=== PATIENT | female | born 1965 | race Caucasian/White ===

== ENCOUNTER 2017-01-08 17:19 | Emergency (ER) | payer OTHER ==
[~2017-01-08] VITALS: Ht 167.6 cm; Wt 72.6 kg
--- NOTE | ~2017-01-08 | CR211 ---
[facility] A Service of [facility] & [facility] RADIOLOGY TEXT RESULTS PATIENT: RODRÍGUEZ LOPEZ LOCATION: CFT[facility] : 69 UNIT #: [id number] AGE: [address]: WAYNE LINN APRN SEX: F ORDER DR: [id number] [facility] [address] [place], [place] [address] [id number] E MR#: [id number] Acc #: [id number] NAME: RODRÍGUEZ LOPEZ : 1965 SEX: F STUDY DATE/TIME: 01/08/2017 18:34 UNIT: CFTX ROOM: STUDY DESCRIPTION: CR Ribs Uni 2 View W PA Ch Rt Attending Physician: Wayne Linn Aprn Ordering Physician: Beverley Xie P.A.-C. Primary Care Physician: Primary Care Physician No MEDICAL IMAGING REPORT This report is preliminary unless electronic signature is present EXAM Right ribs 4 views HISTORY Right rib pain after injury 3 days ago. FINDINGS 4 views of the right ribs are negative. No fracture, pneumothorax or pleural effusion. No focal infiltrates. IMPRESSION Negative right ribs Dictated by... Chase Buckner M.D. THIS IS AN ELECTRONICALLY VERIFIED REPORT Chase Buckner M.D. at 01/09/2017 11:42 PM DFL/dylanr TD: 01/09/2017 02:11 JOB #: [id number] MEDICAL IMAGING REPORT Page 1 of 1 COPY
[~2017-01-08 17:19] MED LIST: ATARAX PO; BACTRIM DS TABL1 TA1 PO; DENTAL BALL; FLEXERIL10 M1 PO; HYDROCODON-ACE1 EAC7 PO; IBUPROFEN800 MG PO; KEFLEX500 M2 PO; LEVAQUIN PO; MOBIC7.5 MG/5 M PO; NO MEDICATIONS; OXYCODON HCL-AP1 TA2 PO; PEN-VEE K PO; PERCOCET 5-3251 TAB PO; PREDNISONE PO; PREDNISONE10 MG/DOSE PO; ROBAXIN 750750 M1 PO; VICODIN 5/1 TAB 5/50 PO; VOLTAREN75 MG PO
== END 2017-01-08 19:30 | disposition home or self-care (01) ==
LOC: CED 17:19 → CFTX 17:19
DX: S20.211A Contusion of right front wall of thorax, initial encounter (principal); Z90.710 Acquired absence of both cervix and uterus; F17.210 Nicotine dependence, cigarettes, uncomplicated; Z88.8 Allergy status to other drugs, medicaments and biological substances; Y93.01 Activity, walking, marching and hiking; Y92.410 Unspecified street and highway as the place of occurrence of the external cause
CPT/HCPCS: 71101; 96372; 99284; J1885